=== PATIENT | female | born 1970 | race Caucasian/White ===

== ENCOUNTER → 2016-11-06 | Outpatient (CLI) | payer OTHER | LOC: FIMAGING 08:46 | DX: Z12.31 Encounter for screening mammogram for malignant neoplasm of breast (principal); Z80.3 Family history of malignant neoplasm of breast | CPT/HCPCS: G0202 ==

== ENCOUNTER → 2016-11-12 | Outpatient (CLI) | payer OTHER | LOC: FIMAGING 09:08 | PROVIDERS: ATTEND Internal Medicine | DX: Z03.89 Encounter for observation for other suspected diseases and conditions ruled out (principal) ==

== ENCOUNTER → 2017-11-23 | Outpatient (CLI) | payer OTHER | LOC: FIMAGING 08:08 | PROVIDERS: ATTEND Internal Medicine | DX: Z12.31 Encounter for screening mammogram for malignant neoplasm of breast (principal); R92.2 Inconclusive mammogram; Z80.3 Family history of malignant neoplasm of breast ==

== ENCOUNTER → 2018-12-04 | Outpatient (CLI) | payer OTHER | LOC: FIMAGING 15:37 | PROVIDERS: ATTEND Internal Medicine | DX: Z12.31 Encounter for screening mammogram for malignant neoplasm of breast (principal); Z80.3 Family history of malignant neoplasm of breast ==

== ENCOUNTER 2018-12-15 10:30 | Emergency (ER) | payer OTHER ==
--- NOTE | 2018-12-15 12:21 | EDPHY ---
H & P Stated Complaint: fall 12/14 on left side, woke up this morning with blurred vision on L side Time Seen by Provider: 12/15/18 10:59 HPI/ROS: CHIEF COMPLAINT: Blurry vision, neck pain HISTORY OF PRESENT ILLNESS: 48-year-old female presents after a fall yesterday with blurry vision and neck pain. She was walking her dog yesterday. The dog suddenly pulled on the leash that she was holding in her left hand. She fell forward, striking her shoulder on the ground and then her head. She was able to get up and walked home. Yesterday evening she noted blurry vision in her left eye, associated with pain around the left eye and moderate neck pain. This morning she awoke with increased neck pain, persistent blurry vision and feels that her left upper extremity is weak. Also has a moderate headache. REVIEW OF SYSTEMS: complete 10 point ROS reviewed and is negative except for the noted elements in the HPI Source: Patient - Medical/Surgical History Hx Asthma: No Hx Chronic Respiratory Disease: No Hx Diabetes: No Hx Cardiac Disease: No Hx Renal Disease: No Hx Cirrhosis: No Hx Alcoholism: No Hx HIV/AIDS: No Hx Splenectomy or Spleen Trauma: No Other PMH: none reported - Social History Smoking Status: Former smoker - Physical Exam Exam: General Appearance: Alert, pleasant Eyes: no conjunctival pallor or injection, no hyphema, TEENA, EOMI ENT, Mouth: Mucous membranes moist Neck: Normal inspection, no midline tenderness, range of motion causes left lateral neck pain Respiratory: Lungs are clear to auscultation Cardiovascular: Regular rate and rhythm Gastrointestinal: Abdomen is soft and nontender Neurological: Alert, oriented x3, cranial nerves II through XII intact, motor 5 /5, sensory intact to light touch, normal gait Skin: Warm and dry, no rash Extremities: Nontender, no pedal edema Psychiatric: Mood and affect normal Constitutional: Initial Vital Signs Temperature (C) 36.7 C 12/15/18 10:33 Heart Rate 78 12/15/18 10:33 Respiratory Rate 18 12/15/18 10:33 Blood Pressure 141/83 H 12/15/18 10:33 O2 Sat (%) 98 12/15/18 10:33 O2 Delivery Mode Room Air Allergies/Adverse Reactions: No Known Allergies Allergy (Unverified 12/15/18 10:32) Home Medications: Medication Instructions Recorded NK [No Known Home Meds] 12/15/18 Medical Decision Making - Diagnostics Imaging Results: Imaging Impressions Head CT 12/15/18 12:16 Impression: No acute intracranial findings. Findings discussed with ZOILA HINES 12/15/2018 at 14:39. Head CTA 12/15/18 12:16 Impression: 1. Contour irregularity of the proximal left vertebral artery suspicious for short segment nonocclusive dissection flap/pseudoaneurysm, although this could less likely be related to artifact from vessel tortuosity. 2. Additional findings as above. Stenoses are calculated using [place] Symptomatic Carotid Endarterectomy Trial (NASCET) criteria. Findings discussed with Dr. Zoila Hines on 12/15/2018 at 14:39. Neck CTA 12/15/18 12:16 Impression: 1. Contour irregularity of the proximal left vertebral artery suspicious for short segment nonocclusive dissection flap/pseudoaneurysm, although this could less likely be related to artifact from vessel tortuosity. 2. Additional findings as above. Stenoses are calculated using [place] Symptomatic Carotid Endarterectomy Trial (NASCET) criteria. Findings discussed with Dr. Zoila Hines on 12/15/2018 at 14:39. Imaging: Discussed imaging studies w/ turner and former automatic Radiologist ED Course/Re-evaluation: This patient presents after a fall with headache, neck pain blurry vision and left upper extremity weakness. Visual acuity left eye is 20/40. Neurologic exam including strength in the left upper extremity is normal. Given constellation of symptoms, concern for carotid dissection. Will obtain CT/CT a of the brain and neck. If these tests are normal, will refer to an outside plant technician for further evaluation. There is no evidence of direct eye trauma or intraocular injury. 3:00 p.m.-CT/CTA of the head and neck read by Dr. Palomo reveals a subtle left vertebral artery dissection. Consulted Dr. Chew, suggests MRI brain to r/ o CVA. If negative, place on ASA 81mg daily and f/u in office. d/w pt, refuses MRI. Tells me that her arm isn't weak, just painful. Tried to encourage her to have MRI, understands concern for CVA, declines MRI. Warning signs discussed. Will f/u neuro. Has an appt tomorrow with an outside plant technician. - Data Points Laboratory Results: Laboratory Results 12/15/18 13:10 12/15/18 13:10 12/15/18 12/15/18 12/15/18 13:17 13:10 13:10 WBC 6.04 10^3/uL 10^3/uL (3.80-9.50) RBC 4.31 10^6/uL 10^6/uL (4.18-5.33) Hgb 14.6 g/dL g/dL (12.6-16.3) POC Hgb 14.3 gm/dL gm/dL (12.6-16.3) Hct 42.7 % % (38.0-47.0) POC Hct 42 % % (38-47) MCV 99.1 fL fL (81.5-99.8) MCH 33.9 pg pg (27.9-34.1) MCHC 34.2 g/dL g/dL (32.4-36.7) RDW 12.8 % % (11.5-15.2) Plt Count 201 10^3/uL 10^3/uL (150-400) MPV 10.4 fL fL (8.7-11.7) Neut % (Auto) 72.3 % % (39.3-74.2) Lymph % (Auto) 21.9 % % (15.0-45.0) [place] % (Auto) 4.6 % % (4.5-13.0) Eos % (Auto) 0.2 % L % (0.6-7.6) Baso % (Auto) 0.7 % % (0.3-1.7) Nucleat RBC Rel Count 0.0 % % (0.0-0.2) Absolute Neuts (auto) 4.37 10^3/uL 10^3/uL (1.70-6.50) Absolute Lymphs (auto) 1.32 10^3/uL 10^3/uL (1.00-3.00) Absolute Monos (auto) 0.28 10^3/uL L 10^3/uL (0.30-0.80) Absolute Eos (auto) 0.01 10^3/uL L 10^3/uL (0.03-0.40) Absolute Basos (auto) 0.04 10^3/uL 10^3/uL (0.02-0.10) Absolute Nucleated RBC 0.00 10^3/uL 10^3/uL (0-0.01) Immature Gran % 0.3 % % (0.0-1.1) Immature Gran # 0.02 10^3/uL 10^3/uL (0.00-0.10) POC Sodium 143 mEq/L mEq/L (135-145) Sodium 138 mEq/L mEq/L (135-145) POC Potassium 3.7 mEq/L mEq/L (3.3-5.0) Potassium 3.7 mEq/L mEq/L (3.5-5.2) POC Chloride 104 mEq/L mEq/L (97-110) Chloride 104 mEq/L mEq/L (97-110) Carbon Dioxide 27 mEq/l mEq/l (22-31) POC Total CO2 26 mEq/L mEq/L (22-31) Anion Gap 7 mEq/L mEq/L (6-14) POC BUN 20 mg/dL mg/dL (7-23) BUN 21 mg/dL mg/dL (7-23) Creatinine 0.7 mg/dL mg/dL (0.6-1.0) POC Creatinine 0.7 mg/dL mg/dL (0.6-1.0) Estimated GFR > 60 Glucose 97 mg/dL mg/dL (70-100) POC Glucose 103 mg/dL H mg/dL (70-100) Calcium 9.6 mg/dL mg/dL (8.5-10.4) Point of Care Test Results: Chemistry 12/15/18 13:17 POC Sodium 143 mEq/L mEq/L (135-145) POC Potassium 3.7 mEq/L mEq/L (3.3-5.0) POC Chloride 104 mEq/L mEq/L (97-110) POC Total CO2 26 mEq/L mEq/L (22-31) POC BUN 20 mg/dL mg/dL (7-23) POC Creatinine 0.7 mg/dL mg/dL (0.6-1.0) POC Glucose 103 mg/dL H mg/dL (70-100) ISTAT H&H 12/15/18 13:17 POC Hgb 14.3 gm/dL gm/dL (12.6-16.3) POC Hct 42 % % (38-47) Departure - Departure Disposition: Home, Routine, Self-Care Clinical Impression: Vertebral artery dissection Condition: Good Instructions: Additional Information Additional Instructions: You have a vertebral artery dissection. The treatment is Aspirin 81mg daily ( lifelong). Follow-up with Dr. Chew in the office. Return for worsening symptoms or any concerns. Referrals: Jessica Enriquez MD [Primary Care Provider] - As per Instructions Phil Chew DO [Medical Doctor] - As per Instructions
[2018-12-15] MEDS ORDERED: IOPAMIDOL (ISOVUE 370) 100 ML BTL IV ONE (12:45)
[2018-12-15 13:48] LABS: PLATELET COUNT 201 10^3/uL (150-400)
[2018-12-15] MEDS ORDERED: ASPIRIN 81 MG CHEWABLE TAB PO ONE (14:56)
[2018-12-15 16:11] VITALS: BP 115/70
== END 2018-12-15 16:12 | disposition home or self-care (01) ==
DX: I77.74 Dissection of vertebral artery (principal)
CPT/HCPCS: 82435-PO; 82565-PO; 82947-PO; 84132-PO; 84295-PO; 84520-PO; 85014-ER; Q9967